=== PATIENT | female | born 1940 | race Caucasian/White ===

== ENCOUNTER 2019-11-15 09:33 | Inpatient (IN) | payer MEDICARE, BC ==
[~2019-11-15] VITALS: Ht 152.4 cm; Wt 72.3 kg
[2019-11-15] MEDS ORDERED: nitroGLYCERIN 0.4mg SUBLingual tab SL PRN ×2 (09:40→12:15)
[2019-11-15] MEDS ORDERED: aspirin 81mg tab.chew PO ONE (09:40)
[2019-11-15 10:10] LABS: BASOPHILS % (AUTO) 0.7 % (0-1); EOSINOPHILS % (AUTO) 0.7 % (0-6); HEMATOCRIT 46.4 % (35.0-45.0); HEMOGLOBIN 15.8 g/dl (12.0-16.0); LYMPHOCYTES # (AUTO) 1.8 X10'3 (1.1-4.8); LYMPHOCYTES % (AUTO) 27.2 % (21-51); MEAN CORPUSCULAR HEMOGLOBIN 31.5 PG (27.0-31.0); MEAN CORPUSCULAR VOLUME 92.7 FL (78-98); MEAN PLATELET VOLUME 9.3 FL (7.4-10.4); MONOCYTES # (AUTO) 0.5 X10'3 (0-0.9); MONOCYTES % (AUTO) 7.8 % (2-12); NEUTROPHILS # (AUTO) 4.3 X10'3 (1.8-7.7); NEUTROPHILS % (AUTO) 63.6 % (42-75); PLATELET COUNT 206 X10'3 (140-440); RED BLOOD COUNT 5.01 X10'6 (4.20-5.60); RED CELL DISTRIBUTION WIDTH 13.4 % (11.5-14.5); WHITE BLOOD COUNT 6.7 X10'3 (4.5-11.0)
[2019-11-15 10:22] LABS: ALANINE AMINOTRANSFERASE 36 U/L (12-78); ALBUMIN 3.7 G/DL (3.4-5.0); ALBUMIN/GLOBULIN RATIO 0.9 (1.1-1.5); ALKALINE PHOSPHATASE 100 IU/L (46-116); ANION GAP 7 (8-16); ASPARTATE AMINO TRANSFERASE 51 U/L (10-37); BILIRUBIN,TOTAL 0.4 MG/DL (0.1-1.0); BLOOD UREA NITROGEN 17 MG/DL (7-18); BUN/CREATININE RATIO 21.3 (6.6-38.0); CHLORIDE 103 MMOL/L (99-107); GLUCOSE 69 MG/DL (70-104); SODIUM 137 MMOL/L (135-145); TOTAL CARBON DIOXIDE 26.9 MMOL/L (24-32); TOTAL PROTEIN 7.6 G/DL (6.4-8.2); eGFR 69 ML/MIN
[2019-11-15] MEDS ORDERED: acetaminophen 325mg tablet PO PRN ×2 (11:15→20:30)
[2019-11-15] MEDS ORDERED: mag hydrox/Alum hydrox/simeth 30ml oral suspension PO PRN (11:15)
[2019-11-15] MEDS ORDERED: ondansetron/PF 4mg/2ml inj IV PRN (11:15)
[2019-11-15] MEDS ORDERED: magnesium hydroxide 30ml (MOM) UD suspension PO PRN (11:15)
[2019-11-15] MEDS ORDERED: morphine 2 MG/ML inj. syringe IV PRN ×2 (11:15)
[2019-11-15] MEDS ORDERED: regadenoson 0.4mg/5ml syringe IV PRN (12:15)
[2019-11-15] MEDS ORDERED: metoprolol tartrate 1mg/ml inj IV PRN (12:15)
[2019-11-15] MEDS ORDERED: aminophylline 250mg/10ml inj. IV PRN (12:15)
[2019-11-15] MEDS: normal saline 1000ml 1,000 ML IV SCH ×2 (12:18→21:05)
--- NOTE | 2019-11-15 15:05 | NUR ---
Patient in room ED 15. I have received report from Geo and had the opportunity to ask questions and assume patient care.
[2019-11-15 15:47] VITALS: BP 166/80
[2019-11-15] MEDS ORDERED: ASPI-611 PO (16:32)
[2019-11-15 18:00] VITALS: BP 160/77
--- NOTE | 2019-11-15 18:23 | NUR ---
Problems reprioritized. Patient report given, questions answered & plan of care reviewed with Ev.
--- NOTE | 2019-11-15 18:24 | NUR ---
Patient in room PCU 3015. I have received report from Donato HUNTER and had the opportunity to ask questions and assume patient care.
[2019-11-15] MEDS: carVEDilol 3.125mg tablet PO SCH (19:02)
[2019-11-15] MEDS: heparin, porcine 5000 units/ml vial SQ SCH (19:03)
--- NOTE | 2019-11-15 19:53 | NUR ---
PAGER ID: [phone] MESSAGE: Sherlyn ext [phone]. Pt April Live is requesting Tylenol for her headache. Thank you
[2019-11-15 21:48] VITALS: BP 122/63
[2019-11-16] VITALS (9 sets, daily range): BP systolic 145–190; BP diastolic 71–86
--- NOTE | 2019-11-16 06:00 | NUR ---
Patient in room PCU 3015. I have received report from Neida HUNTER and had the opportunity to ask questions and assume patient care.
--- NOTE | 2019-11-16 06:25 | NUR ---
Problems reprioritized. Patient report given, questions answered & plan of care reviewed with Donna HUNTER.
[2019-11-16 06:34] LABS: EOSINOPHILS # (AUTO) 0.1 X10'3 (0-0.9); HEMATOCRIT 41.8 % (35.0-45.0); HEMOGLOBIN 13.8 g/dl (12.0-16.0); LYMPHOCYTES # (AUTO) 1.8 X10'3 (1.1-4.8); MEAN CORPUSCULAR HEMOGLOBIN 30.8 PG (27.0-31.0); MEAN CORPUSCULAR HGB CONC 33.1 g/dL (33.0-36.5); MEAN CORPUSCULAR VOLUME 93.3 FL (78-98); MEAN PLATELET VOLUME 9.9 FL (7.4-10.4); MONOCYTES # (AUTO) 0.4 X10'3 (0-0.9); MONOCYTES % (AUTO) 9.1 % (2-12); NEUTROPHILS % (AUTO) 45.9 % (42-75); PLATELET COUNT 158 X10'3 (140-440); RED BLOOD COUNT 4.48 X10'6 (4.20-5.60); RED CELL DISTRIBUTION WIDTH 13.4 % (11.5-14.5); WHITE BLOOD COUNT 4.3 X10'3 (4.5-11.0)
[2019-11-16 06:40] LABS: ALBUMIN 2.8 G/DL (3.4-5.0); ANION GAP 9 (8-16); BLOOD UREA NITROGEN 12 MG/DL (7-18); BUN/CREATININE RATIO 16.9 (6.6-38.0); CALCIUM 8.2 MG/DL (8.5-10.1); CHLORIDE 109 MMOL/L (99-107); CREATININE 0.71 MG/DL (0.40-0.90); GLUCOSE 90 MG/DL (70-104); SODIUM 141 MMOL/L (135-145); TOTAL CARBON DIOXIDE 23.2 MMOL/L (24-32); eGFR 79 ML/MIN
[2019-11-16] MEDS: normal saline 1000ml 1,000 ML IV SCH (07:29)
[2019-11-16] MEDS: carVEDilol 3.125mg tablet PO SCH (07:29)
[2019-11-16] MEDS: heparin, porcine 5000 units/ml vial SQ SCH (07:31)
[2019-11-16] MEDS ORDERED: aspirin 81mg tablet.DR PO SCH (08:00)
[2019-11-16] MEDS ORDERED: lisinopril 5mg tablet PO SCH (11:25)
[2019-11-16] MEDS ORDERED: LISI-604 PO (11:41)
[2019-11-16] MEDS ORDERED: CARV3.12 PO (11:41)
--- NOTE | 2019-11-16 14:07 | NUR ---
Patient was discharged to home. RX were e scripted to [facility] in [place]. PIV was removed with cannula intact. Patient was picked up by a friend. Discharge instructions were reviewed and patient verbalized understanding. Patient was alert, oriented , and appropriate at time of discharge
== END 2019-11-16 13:57 | disposition home or self-care (01) | DRG 305 ==
LOC: ER 09:34 → ED HOLD 11:15 → PCU 3S 15:17
PROVIDERS: ADMIT Family Medicine; ATTEND Family Medicine
PROC: 4A02XM4 Measurement of Cardiac Total Activity, External Approach (ICD-10-PCS; principal; 2019-11-16)
PROC: 3E073KZ Introduction of Other Diagnostic Substance into Coronary Artery, Percutaneous Approach (ICD-10-PCS; 2019-11-16)
DX: I16.0 Hypertensive urgency (principal); I20.0 Unstable angina; F41.9 Anxiety disorder, unspecified; I10 Essential (primary) hypertension; Z86.73 Personal history of transient ischemic attack (TIA), and cerebral infarction without residual deficits; Z79.82 Long term (current) use of aspirin; Z88.8 Allergy status to other drugs, medicaments and biological substances
CPT/HCPCS: 36415; 71045; 78452; 80048; 80053; 83880; 84484; 85025; 87081; 93005; 93017; 93306; 99285; A9500; G0378; J1644; J2785; J7030

== ENCOUNTER 2020-02-25 06:24 | Inpatient (IN) | payer MEDICARE, BC ==
[~2020-02-25] VITALS: Ht 149.9 cm; Wt 70.5 kg
[2020-02-25] VITALS (7 sets, daily range): BP systolic 90–125; BP diastolic 47–67
[~2020-02-25 06:24] MED LIST: CARV3.12 PO; LISI-604 PO
[2020-02-25] MEDS ORDERED: normal saline 1000ML IV soln IV ONE (06:40)
[2020-02-25 07:50] LABS: BASOPHILS % (AUTO) 0.3 % (0-1); EOSINOPHILS # (AUTO) 0.1 X10'3 (0-0.9); EOSINOPHILS % (AUTO) 0.7 % (0-6); HEMATOCRIT 32.3 % (35.0-45.0); HEMOGLOBIN 10.8 g/dl (12.0-16.0); LYMPHOCYTES % (AUTO) 13.4 % (21-51); MEAN CORPUSCULAR HEMOGLOBIN 31.1 PG (27.0-31.0); MEAN CORPUSCULAR HGB CONC 33.3 g/dL (33.0-36.5); MEAN CORPUSCULAR VOLUME 93.2 FL (78-98); MEAN PLATELET VOLUME 9.7 FL (7.4-10.4); MONOCYTES # (AUTO) 0.2 X10'3 (0-0.9); MONOCYTES % (AUTO) 2.7 % (2-12); NEUTROPHILS # (AUTO) 6.3 X10'3 (1.8-7.7); NEUTROPHILS % (AUTO) 82.9 % (42-75); PLATELET COUNT 169 X10'3 (140-440); RED BLOOD COUNT 3.46 X10'6 (4.20-5.60); RED CELL DISTRIBUTION WIDTH 13.8 % (11.5-14.5); WHITE BLOOD COUNT 7.6 X10'3 (4.5-11.0)
[2020-02-25 08:01] LABS: PARTIAL THROMBOPLASTIN TIME 31 SECONDS (22-32)
[2020-02-25 08:03] LABS: ALANINE AMINOTRANSFERASE 13 U/L (12-78); ALBUMIN 2.4 G/DL (3.4-5.0); ALBUMIN/GLOBULIN RATIO 0.9 (1.1-1.5); ALKALINE PHOSPHATASE 60 IU/L (46-116); ANION GAP 7 (8-16); ASPARTATE AMINO TRANSFERASE 15 U/L (10-37); BILIRUBIN,TOTAL 0.4 MG/DL (0.1-1.0); BLOOD UREA NITROGEN 19 MG/DL (7-18); BUN/CREATININE RATIO 27.1 (6.6-38.0); CALCIUM 7.7 MG/DL (8.5-10.1); CHLORIDE 112 MMOL/L (99-107); GLUCOSE 138 MG/DL (70-104); SODIUM 142 MMOL/L (135-145); TOTAL CARBON DIOXIDE 23.4 MMOL/L (24-32); eGFR 81 ML/MIN
[2020-02-25] MEDS ORDERED: mag hydrox/Alum hydrox/simeth 30ml oral suspension PO PRN (08:30)
[2020-02-25] MEDS ORDERED: HYDROcodone/acetaminophen 10/325mg tab PO PRN (08:30)
[2020-02-25] MEDS ORDERED: magnesium 4gm in 100ml NS 100 ML IV PRN (08:30)
[2020-02-25] MEDS ORDERED: magnesium Cl slow-release 64mg tablet PO PRN (08:30)
[2020-02-25] MEDS ORDERED: potassium CL 10mEq/100ml bag 100 ML IV PRN ×2 (08:30)
[2020-02-25] MEDS ORDERED: ondansetron/PF 4mg/2ml inj IV PRN (08:30)
[2020-02-25] MEDS ORDERED: potassium Cl 20mEq in NS 1,000 ML IV SCH (08:30)
[2020-02-25] MEDS ORDERED: acetaminophen 325mg tablet PO PRN (08:30)
[2020-02-25] MEDS ORDERED: magnesium 2GM in 50ml NS 50 ML IV PRN (08:30)
[2020-02-25] MEDS ORDERED: potassium Cl 20 mEq SR tablet PO PRN (08:30)
[2020-02-25] MEDS ORDERED: HYDROcodone/acetaminophen 5mg/325mg tablet PO PRN (08:30)
[2020-02-25] MEDS ORDERED: magnesium hydroxide 30ml (MOM) UD suspension PO PRN (08:30)
[2020-02-25] MEDS ORDERED: metoclopramide 5 mg/ml inj IV PRN (08:30)
[2020-02-25 08:47] LABS: CLARITY,URINE CLOUDY (Clear); COLOR,URINE YELLOW (Yellow); GLUCOSE, URINE NEGATIVE (Neg); KETONES,URINE TRACE mg/dl (Neg); LEUKOCYTE ESTERASE ,URINE SMALL (Neg); NITRITES, URINE NEGATIVE (Neg); OCCULT BLOOD,URINE LARGE (Neg); PROTEIN,URINE NEGATIVE (Neg); UROBILINOGEN,URINE 0.2 E.U/dL (0.2-1.0)
[2020-02-25] MEDS ORDERED: iohexol 350MG/ML 100ml bottle IV ONE (08:54)
[2020-02-25 08:56] LABS: UA COLLECTION TYPE CLN CATCH MIDSTREAM
[2020-02-25 08:58] LABS: HYALINE CASTS 0-3 /LPF (NEGATIVE); MUCUS STRANDS MANY /LPF (Neg); SQUAMOUS EPITHELIAL CELL,UR MODERATE /LPF (FEW)
[2020-02-25 08:59] LABS: BACTERIA,URINE 1+ /HPF (Neg)
[2020-02-25 09:00] LABS: WBC,URINE 0-4 /HPF (0-4)
[2020-02-25] MEDS: pantoprazole 40 MG vial IV SCH (09:33)
[2020-02-25] MEDS: normal saline 1000ml 1,000 ML IV SCH ×3 (09:33→22:23)
[2020-02-25 11:38] LABS: OCCULT BLOOD STOOL POSITIVE (Neg)
--- NOTE | 2020-02-25 11:50 | NUR ---
PT EXPERIENCED INCREASED DIZZINESS THEN BECAME UNRESPONSIZE ON THE BEDSIDE COMMODE DUE TO LARGE AMOUNTS OF DARK RED BLOODY STOOL. DR. BRIGGS WAS MADE AWARE. BLOOD WAS ORDERED IMMEDIATLY AND PT WAS ASSISTED BACK INTO BED BY HAIDER CHAPPELL.
[2020-02-25] MEDS ORDERED: CARV3.122 PO (12:28)
[2020-02-25] MEDS ORDERED: LISI10TA4 PO (12:28)
[2020-02-25] MEDS ORDERED: ASPI-611 PO (12:40)
[2020-02-25] MEDS ORDERED: normal saline 1000ML IV soln IVB ONE (16:35)
[2020-02-25 17:24] LABS: HEMATOCRIT 27.7 % (35.0-45.0); HEMOGLOBIN 9.1 g/dl (12.0-16.0); MEAN CORPUSCULAR HEMOGLOBIN 31.2 PG (27.0-31.0); MEAN CORPUSCULAR VOLUME 94.6 FL (78-98); MEAN PLATELET VOLUME 10.9 FL (7.4-10.4); PLATELET COUNT 128 X10'3 (140-440); RED BLOOD COUNT 2.93 X10'6 (4.20-5.60); RED CELL DISTRIBUTION WIDTH 13.6 % (11.5-14.5); WHITE BLOOD COUNT 8.8 X10'3 (4.5-11.0)
--- NOTE | 2020-02-25 17:30 | NUR ---
Patient in room PCU 3015. I have received report from ELSA Pfeiffer and had the opportunity to ask questions and assume patient care.
[2020-02-25] MEDS ORDERED: PEG 3350/Na sulf,bicarb,Cl/KCl oral sol 4 liter bottle PO ONE (18:00)
--- NOTE | 2020-02-25 18:12 | NUR ---
PAGER ID: [phone] MESSAGE: RE: April Live [id number]. Rapid response called. Patient hypotensive sbp 75. Bolusing NS at this time. Stat hemogram. Any new orders. Kayla [phone]
--- NOTE | 2020-02-25 19:05 | NUR ---
While setting pt up in the room after ED transferred. Pt stated had a large red bloody BM. Pt states feeling dizzy and lightheaded. Notified charge nurse. BP 73/33. NS bolus started and Rapid was called. Pt more stable at this time. Patient report given, questions answered & plan of care reviewed with ELSA Sherman.
[2020-02-25 19:59] LABS: HEMATOCRIT 23.4 % (35.0-45.0); HEMOGLOBIN 7.8 g/dl (12.0-16.0); MEAN CORPUSCULAR HEMOGLOBIN 31.8 PG (27.0-31.0); MEAN CORPUSCULAR HGB CONC 33.5 g/dL (33.0-36.5); PLATELET COUNT 126 X10'3 (140-440); RED BLOOD COUNT 2.46 X10'6 (4.20-5.60); RED CELL DISTRIBUTION WIDTH 13.7 % (11.5-14.5); WHITE BLOOD COUNT 8.7 X10'3 (4.5-11.0)
[2020-02-25] MEDS: K and/or MAG REPLACEMENT MC SCH (20:00)
[2020-02-25 20:12] LABS: PARTIAL THROMBOPLASTIN TIME 36 SECONDS (22-32)
[2020-02-25] MEDS ORDERED: temazepam 15mg capsule PO PRN (21:00)
--- NOTE | 2020-02-25 21:50 | NUR ---
Paged Dr. Chanel of pt's latest H & H. PAGER ID: [phone] MESSAGE: This is ELSA Sherman of PCU. Pt April Live, 79 F, DX : Blood in stool, who was Rapid Response a while ago before 1800 today has a latest H & H value of 7.8 / 23.4. Thanks!
[2020-02-25 23:40] LABS: HEMATOCRIT 25.4 % (35.0-45.0); HEMOGLOBIN 8.6 g/dl (12.0-16.0); MEAN CORPUSCULAR HEMOGLOBIN 31.5 PG (27.0-31.0); MEAN CORPUSCULAR HGB CONC 33.6 g/dL (33.0-36.5); MEAN CORPUSCULAR VOLUME 93.6 FL (78-98); MEAN PLATELET VOLUME 9.6 FL (7.4-10.4); PLATELET COUNT 151 X10'3 (140-440); RED BLOOD COUNT 2.72 X10'6 (4.20-5.60); RED CELL DISTRIBUTION WIDTH 13.7 % (11.5-14.5); WHITE BLOOD COUNT 10.6 X10'3 (4.5-11.0)
[2020-02-26] VITALS (16 sets, daily range): BP systolic 101–137; BP diastolic 48–68
[2020-02-26] MEDS: normal saline 1000ml 1,000 ML IV SCH (05:03)
[2020-02-26 06:00] LABS: HEMATOCRIT 22.3 % (35.0-45.0); HEMOGLOBIN 7.6 g/dl (12.0-16.0); MEAN CORPUSCULAR HEMOGLOBIN 32.2 PG (27.0-31.0); MEAN CORPUSCULAR HGB CONC 34.2 g/dL (33.0-36.5); MEAN CORPUSCULAR VOLUME 94.1 FL (78-98); PLATELET COUNT 141 X10'3 (140-440); RED BLOOD COUNT 2.37 X10'6 (4.20-5.60); RED CELL DISTRIBUTION WIDTH 13.8 % (11.5-14.5); WHITE BLOOD COUNT 10.4 X10'3 (4.5-11.0)
[2020-02-26 06:08] LABS: ALBUMIN 2.1 G/DL (3.4-5.0); ANION GAP 8 (8-16); BLOOD UREA NITROGEN 19 MG/DL (7-18); BUN/CREATININE RATIO 28.8 (6.6-38.0); CHLORIDE 116 MMOL/L (99-107); CREATININE 0.66 MG/DL (0.40-0.90); GLUCOSE 125 MG/DL (70-104); MAGNESIUM 1.7 MG/DL (1.5-2.4); PHOSPHORUS 2.9 MG/DL (2.3-4.5); POTASSIUM 3.9 MMOL/L (3.5-5.1); SODIUM 146 MMOL/L (135-145); TOTAL CARBON DIOXIDE 21.7 MMOL/L (24-32); eGFR 86 ML/MIN
--- NOTE | 2020-02-26 06:14 | NUR ---
Problems reprioritized. Patient report given, questions answered & plan of care reviewed with ELSA Porter.
--- NOTE | 2020-02-26 06:39 | NUR ---
Patient in room PCU 3015. I have received report from brian clarke and had the opportunity to ask questions and assume patient care.
[2020-02-26] MEDS: K and/or MAG REPLACEMENT MC SCH ×2 (08:00→19:19)
[2020-02-26] MEDS: pantoprazole 40 MG vial IV SCH (08:06)
[2020-02-26] MEDS ORDERED: MIDAZolam 5mg/5ml vial ONE (12:37)
[2020-02-26] MEDS ORDERED: LIDOcaine Viscous 15ml cup ONE (12:37)
[2020-02-26] MEDS ORDERED: fentaNYL/PF 50MCG/1 ML 2ML syringe ONE (12:37)
[2020-02-26] MEDS ORDERED: normal saline 1000ml 1,000 ML IV ONE (16:50)
--- NOTE | 2020-02-26 17:05 | NUR ---
PAGED DR FRAGA RE: PAGER ID: [phone] MESSAGE: ISHMAEL LAMAR. PTS FAMILY REQUESTS SHE BE TESTED FOR H. PYLORI. [facility] [id number]
[2020-02-26 17:40] LABS: HEMATOCRIT 22.9 % (35.0-45.0); HEMOGLOBIN 7.8 g/dl (12.0-16.0); MEAN CORPUSCULAR HEMOGLOBIN 31.9 PG (27.0-31.0); MEAN CORPUSCULAR HGB CONC 34.1 g/dL (33.0-36.5); MEAN CORPUSCULAR VOLUME 93.7 FL (78-98); MEAN PLATELET VOLUME 9.5 FL (7.4-10.4); PLATELET COUNT 128 X10'3 (140-440); RED BLOOD COUNT 2.44 X10'6 (4.20-5.60); RED CELL DISTRIBUTION WIDTH 13.5 % (11.5-14.5); WHITE BLOOD COUNT 9.9 X10'3 (4.5-11.0)
[2020-02-26 18:00] LABS: H PYLORI ANTIBODY NEGATIVE (Neg)
--- NOTE | 2020-02-26 18:26 | NUR ---
Problems reprioritized. Patient report given, questions answered & plan of care reviewed with ROSS HUNTER.
--- NOTE | 2020-02-26 18:28 | NUR ---
Patient in room PCU 3015. I have received report from ELSA Porter and had the opportunity to ask questions and assume patient care.
[2020-02-26] MEDS: pantoprazole 40mg Tablet.DR PO SCH (19:25)
[2020-02-26] MEDS: dextrose 5%-1/4 normal saline 1,000 ML IV SCH (21:41)
--- NOTE | 2020-02-26 23:00 | NUR ---
Patient in room PCU 3015. I have received report from Nely HUNTER and had the opportunity to ask questions and assume patient care.
--- NOTE | 2020-02-26 23:01 | NUR ---
Problems reprioritized. Patient report given, questions answered & plan of care reviewed with ELSA Gracia.
[2020-02-27] VITALS (10 sets, daily range): BP systolic 97–145; BP diastolic 44–75
[2020-02-27] MEDS: dextrose 5%-1/4 normal saline 1,000 ML IV SCH ×3 (03:10→22:36)
--- NOTE | 2020-02-27 06:00 | NUR ---
Patient in room PCU 3015. I have received report from Samia HUNTER and had the opportunity to ask questions and assume patient care.
--- NOTE | 2020-02-27 06:38 | NUR ---
Problems reprioritized. Patient report given, questions answered & plan of care reviewed with Emilie HUNTER.
[2020-02-27 07:09] LABS: HEMOGLOBIN 7.1 g/dl (12.0-16.0); MEAN CORPUSCULAR HEMOGLOBIN 32.7 PG (27.0-31.0); MEAN CORPUSCULAR HGB CONC 34.9 g/dL (33.0-36.5); MEAN CORPUSCULAR VOLUME 93.7 FL (78-98); MEAN PLATELET VOLUME 9.5 FL (7.4-10.4); PLATELET COUNT 120 X10'3 (140-440); RED BLOOD COUNT 2.15 X10'6 (4.20-5.60); RED CELL DISTRIBUTION WIDTH 13.8 % (11.5-14.5); WHITE BLOOD COUNT 9.5 X10'3 (4.5-11.0)
[2020-02-27 07:14] LABS: HEMATOCRIT 20.2 % (35.0-45.0)
--- NOTE | 2020-02-27 07:24 | NUR ---
PAGER ID: [phone] MESSAGE: [id number] Waqas Live H/H 7.05/12.2. Received PRBCx1 02/25. Emilie [phone]
--- NOTE | 2020-02-27 07:25 | NUR ---
Received orders to transfuse PRBC x1
[2020-02-27 07:29] LABS: ALBUMIN 2.2 G/DL (3.4-5.0); ANION GAP 5 (8-16); BLOOD UREA NITROGEN 12 MG/DL (7-18); BUN/CREATININE RATIO 17.9 (6.6-38.0); CALCIUM 7.3 MG/DL (8.5-10.1); CHLORIDE 110 MMOL/L (99-107); CREATININE 0.67 MG/DL (0.40-0.90); GLUCOSE 137 MG/DL (70-104); MAGNESIUM 1.6 MG/DL (1.5-2.4); PHOSPHORUS 1.5 MG/DL (2.3-4.5); POTASSIUM 3.3 MMOL/L (3.5-5.1); SODIUM 138 MMOL/L (135-145); TOTAL CARBON DIOXIDE 23.3 MMOL/L (24-32); eGFR 85 ML/MIN
[2020-02-27] MEDS: K and/or MAG REPLACEMENT MC SCH ×2 (08:00→20:00)
[2020-02-27] MEDS: pantoprazole 40mg Tablet.DR PO SCH ×2 (09:34→19:36)
[2020-02-27 13:13] LABS: HEMATOCRIT 26.3 % (35.0-45.0); HEMOGLOBIN 9.1 g/dl (12.0-16.0); MEAN CORPUSCULAR HEMOGLOBIN 31.6 PG (27.0-31.0); MEAN CORPUSCULAR HGB CONC 34.7 g/dL (33.0-36.5); MEAN CORPUSCULAR VOLUME 91.2 FL (78-98); MEAN PLATELET VOLUME 9.6 FL (7.4-10.4); PLATELET COUNT 129 X10'3 (140-440); RED BLOOD COUNT 2.88 X10'6 (4.20-5.60); RED CELL DISTRIBUTION WIDTH 14.5 % (11.5-14.5); WHITE BLOOD COUNT 10.9 X10'3 (4.5-11.0)
--- NOTE | 2020-02-27 18:30 | NUR ---
Problems reprioritized. Patient report given, questions answered & plan of care reviewed with Alexandra HUNTER.
--- NOTE | 2020-02-27 18:54 | NUR ---
Patient in room U 3015. I have received report from JENNIFER HUNTER and had the opportunity to ask questions and assume patient care. Addendum: 02/27/20 at 1855 by Alexandra Boo RN Amended: Links added.
[2020-02-27] MEDS: acetaminophen 325mg tablet PO PRN (19:34)
[2020-02-27 19:35] LABS: HEMATOCRIT 23.2 % (35.0-45.0); HEMOGLOBIN 8.2 g/dl (12.0-16.0); MEAN CORPUSCULAR HEMOGLOBIN 32.3 PG (27.0-31.0); MEAN CORPUSCULAR HGB CONC 35.5 g/dL (33.0-36.5); MEAN CORPUSCULAR VOLUME 90.9 FL (78-98); MEAN PLATELET VOLUME 9.7 FL (7.4-10.4); PLATELET COUNT 122 X10'3 (140-440); RED BLOOD COUNT 2.56 X10'6 (4.20-5.60); RED CELL DISTRIBUTION WIDTH 14.7 % (11.5-14.5); WHITE BLOOD COUNT 10.6 X10'3 (4.5-11.0)
--- NOTE | 2020-02-27 22:13 | NUR ---
Orientee documentation: I have reviewed and agree with all interventions, assessments performed and documented by ELSA Jackson.
[2020-02-28] VITALS (8 sets, daily range): BP systolic 117–153; BP diastolic 59–77
--- NOTE | 2020-02-28 01:05 | NUR ---
pt up with assistance to brp tolerated well.
[2020-02-28 01:57] LABS: HEMATOCRIT 23.6 % (35.0-45.0); HEMOGLOBIN 8.5 g/dl (12.0-16.0); MEAN CORPUSCULAR HEMOGLOBIN 32.7 PG (27.0-31.0); MEAN CORPUSCULAR HGB CONC 35.9 g/dL (33.0-36.5); MEAN CORPUSCULAR VOLUME 91.2 FL (78-98); MEAN PLATELET VOLUME 9.9 FL (7.4-10.4); PLATELET COUNT 132 X10'3 (140-440); RED BLOOD COUNT 2.59 X10'6 (4.20-5.60); RED CELL DISTRIBUTION WIDTH 14.3 % (11.5-14.5); WHITE BLOOD COUNT 9.9 X10'3 (4.5-11.0)
[2020-02-28 02:03] LABS: ALBUMIN 2.3 G/DL (3.4-5.0); ANION GAP 3 (8-16); BLOOD UREA NITROGEN 8 MG/DL (7-18); BUN/CREATININE RATIO 11.6 (6.6-38.0); CALCIUM 7.6 MG/DL (8.5-10.1); CHLORIDE 112 MMOL/L (99-107); CREATININE 0.69 MG/DL (0.40-0.90); GLUCOSE 121 MG/DL (70-104); MAGNESIUM 1.9 MG/DL (1.5-2.4); PHOSPHORUS 1.6 MG/DL (2.3-4.5); SODIUM 140 MMOL/L (135-145); TOTAL CARBON DIOXIDE 24.6 MMOL/L (24-32); eGFR 82 ML/MIN
[2020-02-28] MEDS: potassium Cl 20 mEq SR tablet PO PRN ×4 (02:22→22:53)
--- NOTE | 2020-02-28 03:30 | NUR ---
resting without s&s of distress.
--- NOTE | 2020-02-28 06:46 | NUR ---
Problems reprioritized. Patient report given, questions answered & plan of care reviewed with JENNIFER HUNTER. Addendum: 02/28/20 at 0648 by Alexandra Boo RN Amended: Links added.
--- NOTE | 2020-02-28 06:54 | NUR ---
Patient in room PCU 3015. I have received report from Alexandra HUNTER and had the opportunity to ask questions and assume patient care.
[2020-02-28 07:07] LABS: HEMATOCRIT 24.3 % (35.0-45.0); HEMOGLOBIN 8.6 g/dl (12.0-16.0); MEAN CORPUSCULAR HEMOGLOBIN 32.3 PG (27.0-31.0); MEAN CORPUSCULAR HGB CONC 35.1 g/dL (33.0-36.5); MEAN CORPUSCULAR VOLUME 91.8 FL (78-98); MEAN PLATELET VOLUME 9.2 FL (7.4-10.4); PLATELET COUNT 138 X10'3 (140-440); RED BLOOD COUNT 2.65 X10'6 (4.20-5.60); RED CELL DISTRIBUTION WIDTH 14.9 % (11.5-14.5); WHITE BLOOD COUNT 10.5 X10'3 (4.5-11.0)
[2020-02-28] MEDS: K and/or MAG REPLACEMENT MC SCH ×2 (08:00→20:00)
[2020-02-28] MEDS: dextrose 5%-1/4 normal saline 1,000 ML IV SCH ×2 (08:17→23:28)
[2020-02-28] MEDS: pantoprazole 40mg Tablet.DR PO SCH ×2 (08:17→20:34)
[2020-02-28] MEDS ORDERED: PANT40TA54 PO (09:15)
[2020-02-28] MEDS ORDERED: potassium Cl 20 mEq SR tablet PO PRN (10:35)
[2020-02-28] MEDS ORDERED: potassium CL 10mEq/100ml bag 100 ML IV PRN ×2 (10:35)
[2020-02-28] MEDS ORDERED: heparin sodium, porcine/PF 100unit/ml 5ML syringe ONE (11:14)
[2020-02-28 13:22] LABS: HEMATOCRIT 24.6 % (35.0-45.0); HEMOGLOBIN 8.5 g/dl (12.0-16.0); MEAN CORPUSCULAR HEMOGLOBIN 31.7 PG (27.0-31.0); MEAN CORPUSCULAR HGB CONC 34.8 g/dL (33.0-36.5); MEAN CORPUSCULAR VOLUME 91.2 FL (78-98); MEAN PLATELET VOLUME 9.5 FL (7.4-10.4); PLATELET COUNT 138 X10'3 (140-440); RED BLOOD COUNT 2.69 X10'6 (4.20-5.60); RED CELL DISTRIBUTION WIDTH 14.3 % (11.5-14.5); WHITE BLOOD COUNT 9.8 X10'3 (4.5-11.0)
--- NOTE | 2020-02-28 16:03 | NUR ---
PAGER ID: [phone] MESSAGE: [id number] Waqas Live bleeding scan negative for active bleed. However patient still passing small amount of blood rectally. Just an update. Emilie [phone]
--- NOTE | 2020-02-28 18:30 | NUR ---
Patient in room PCU 3015. I have received report from Emilie HUNTER and had the opportunity to ask questions and assume patient care.
--- NOTE | 2020-02-28 18:31 | NUR ---
Problems reprioritized. Patient report given, questions answered & plan of care reviewed with Brennan HUNTER.
[2020-02-28] MEDS ORDERED: tranexamic acid 100mg/ml inj. IV ONE (18:45)
[2020-02-28 19:21] LABS: HEMATOCRIT 24.5 % (35.0-45.0); HEMOGLOBIN 8.5 g/dl (12.0-16.0); MEAN CORPUSCULAR HEMOGLOBIN 32.4 PG (27.0-31.0); MEAN CORPUSCULAR HGB CONC 34.9 g/dL (33.0-36.5); MEAN CORPUSCULAR VOLUME 92.9 FL (78-98); MEAN PLATELET VOLUME 9.9 FL (7.4-10.4); PLATELET COUNT 140 X10'3 (140-440); RED BLOOD COUNT 2.64 X10'6 (4.20-5.60); RED CELL DISTRIBUTION WIDTH 14.6 % (11.5-14.5); WHITE BLOOD COUNT 10.2 X10'3 (4.5-11.0)
[2020-02-28] MEDS ORDERED: tranexamic acid inj. 700 MG in normal saline 100ml IV soln 100 ML IV ONE (19:30)
[2020-02-28] MEDS: acetaminophen 325mg tablet PO PRN (20:52)
[2020-02-29] VITALS (8 sets, daily range): BP systolic 131–152; BP diastolic 59–76
[2020-02-29 02:38] LABS: HEMATOCRIT 23.5 % (35.0-45.0); HEMOGLOBIN 8.2 g/dl (12.0-16.0); MEAN CORPUSCULAR HEMOGLOBIN 31.8 PG (27.0-31.0); MEAN CORPUSCULAR HGB CONC 34.8 g/dL (33.0-36.5); MEAN CORPUSCULAR VOLUME 91.5 FL (78-98); MEAN PLATELET VOLUME 9.7 FL (7.4-10.4); PLATELET COUNT 145 X10'3 (140-440); RED BLOOD COUNT 2.56 X10'6 (4.20-5.60); RED CELL DISTRIBUTION WIDTH 14.5 % (11.5-14.5); WHITE BLOOD COUNT 9.2 X10'3 (4.5-11.0)
[2020-02-29 02:53] LABS: ALBUMIN 2.5 G/DL (3.4-5.0); ANION GAP 4 (8-16); BLOOD UREA NITROGEN 7 MG/DL (7-18); BUN/CREATININE RATIO 11.7 (6.6-38.0); CALCIUM 7.9 MG/DL (8.5-10.1); CHLORIDE 110 MMOL/L (99-107); GLUCOSE 110 MG/DL (70-104); MAGNESIUM 1.8 MG/DL (1.5-2.4); PHOSPHORUS 1.9 MG/DL (2.3-4.5); POTASSIUM 4.2 MMOL/L (3.5-5.1); SODIUM 139 MMOL/L (135-145); TOTAL CARBON DIOXIDE 24.6 MMOL/L (24-32); eGFR > 90 ML/MIN
[2020-02-29 06:21] LABS: HEMOGLOBIN 8.1 g/dl (12.0-16.0); MEAN CORPUSCULAR HEMOGLOBIN 32.5 PG (27.0-31.0); MEAN CORPUSCULAR VOLUME 92.9 FL (78-98); PLATELET COUNT 142 X10'3 (140-440); RED BLOOD COUNT 2.48 X10'6 (4.20-5.60); RED CELL DISTRIBUTION WIDTH 14.4 % (11.5-14.5); WHITE BLOOD COUNT 7.8 X10'3 (4.5-11.0)
--- NOTE | 2020-02-29 06:26 | NUR ---
Student documentation: I have reviewed and agree with all interventions, medications, assessments performed and documented by Broderick Monroe RN.
--- NOTE | 2020-02-29 06:27 | NUR ---
Problems reprioritized. Patient report given, questions answered & plan of care reviewed with Deepa Ashford
--- NOTE | 2020-02-29 06:32 | NUR ---
Patient in room PCU 3015. I have received report from ELSA Amin and had the opportunity to ask questions and assume patient care.
[2020-02-29] MEDS: K and/or MAG REPLACEMENT MC SCH ×2 (08:00→20:00)
[2020-02-29] MEDS: pantoprazole 40mg Tablet.DR PO SCH ×2 (09:03→20:24)
--- NOTE | 2020-02-29 10:53 | NUR ---
Per Dr Ca, put pt on a clear liquid diet/no reds. Start on Golytely after dinner. NPO after midnight, discontinue dextrose, start on NS at 70ml/hr. Dr Alicea will possibly perform another colonoscopy on 03/01/20 in the evening with the proper preparation.
[2020-02-29] MEDS ORDERED: iohexol 350MG/ML 100ml bottle IV ONE (11:37)
[2020-02-29] MEDS: normal saline 1000ml 1,000 ML IV SCH ×2 (12:16→23:57)
--- NOTE | 2020-02-29 18:30 | NUR ---
Problems reprioritized. Patient report given, questions answered & plan of care reviewed with ELSA Carter. Pt sitting up in bed eating at change of shift, all pt needs met at this time.
[2020-02-29] MEDS ORDERED: PEG 3350/Na sulf,bicarb,Cl/KCl oral sol 4 liter bottle PO ONE (19:00)
[2020-03-01] VITALS (9 sets, daily range): BP systolic 116–154; BP diastolic 51–82
[2020-03-01 06:06] LABS: HEMATOCRIT 24.3 % (35.0-45.0); HEMOGLOBIN 8.4 g/dl (12.0-16.0); MEAN CORPUSCULAR HEMOGLOBIN 32.4 PG (27.0-31.0); MEAN CORPUSCULAR HGB CONC 34.5 g/dL (33.0-36.5); MEAN CORPUSCULAR VOLUME 93.8 FL (78-98); MEAN PLATELET VOLUME 9.8 FL (7.4-10.4); PLATELET COUNT 158 X10'3 (140-440); RED BLOOD COUNT 2.59 X10'6 (4.20-5.60); RED CELL DISTRIBUTION WIDTH 14.6 % (11.5-14.5); WHITE BLOOD COUNT 6.9 X10'3 (4.5-11.0)
[2020-03-01 06:35] LABS: ALBUMIN 2.6 G/DL (3.4-5.0); ANION GAP 6 (8-16); BLOOD UREA NITROGEN 5 MG/DL (7-18); BUN/CREATININE RATIO 9.1 (6.6-38.0); CHLORIDE 108 MMOL/L (99-107); CREATININE 0.55 MG/DL (0.40-0.90); GLUCOSE 104 MG/DL (70-104); MAGNESIUM 1.8 MG/DL (1.5-2.4); POTASSIUM 3.8 MMOL/L (3.5-5.1); SODIUM 139 MMOL/L (135-145); TOTAL CARBON DIOXIDE 24.7 MMOL/L (24-32); eGFR > 90 ML/MIN
--- NOTE | 2020-03-01 06:41 | NUR ---
Problems reprioritized. Patient report given, questions answered & plan of care reviewed with LORI. Addendum: 03/01/20 at 0641 by Bogdan Stinson RN Amended: Links added.
--- NOTE | 2020-03-01 06:43 | NUR ---
Patient in room PCU 3015. I have received report from Raul HUNTER and had the opportunity to ask questions and assume patient care.
--- NOTE | 2020-03-01 07:27 | NUR ---
PAGER ID: [phone] MESSAGE: Neftali Renee#[phone]- Pt pulled his PIV on his hand. Pt has Protonix, sandistatin, other antibiotics that need to be given. Can we please get pic put in a central line so we can draw? Thank you. Carlie Addendum: 03/01/20 at 1458 by Carlie Dubon RN wrong pt
[2020-03-01] MEDS: K and/or MAG REPLACEMENT MC SCH ×2 (08:00→20:00)
[2020-03-01] MEDS: pantoprazole 40mg Tablet.DR PO SCH ×2 (08:07→20:33)
--- NOTE | 2020-03-01 14:57 | NUR ---
Pt taken to GI lab for colonoscopy.
[2020-03-01] MEDS: normal saline 1000ml 1,000 ML IV SCH ×2 (15:01→20:34)
[2020-03-01] MEDS ORDERED: fentaNYL/PF 50MCG/1 ML 2ML syringe ONE (15:02)
[2020-03-01] MEDS ORDERED: MIDAZolam 5mg/5ml vial ONE (15:02)
--- NOTE | 2020-03-01 17:40 | NUR ---
Pt had his bag of belongings brought up by [facility], which was preciously reviewed by security before hand. Pt received it, restrains were a bit loose because for the last 2 hrs pt has been good about not pulling PIV's or Ochoa. Pt looked thought the bag and got ahold of what appears to be heroin and a hypodermic used needle and shot up the substance up his hand IV. Sitter noticed him injecting something and took it away. Morgan charge nurse went into the room, assess the pt and proceeded on giving narcan 1mg/IV to pt. Dr Laird notified and restrains are back to short and tight at a comfortable level. Pt a & O and insisting on going AMA.
--- NOTE | 2020-03-01 18:25 | NUR ---
pt back from GI lab, regular diet ok.
--- NOTE | 2020-03-01 18:30 | NUR ---
Problems reprioritized. Patient report given, questions answered & plan of care reviewed with Gloria HUNTER.
[2020-03-02 02:00] VITALS: BP 107/59
[2020-03-02 07:23] VITALS: BP 121/51
[2020-03-02 07:24] VITALS: BP 121/51
[2020-03-02 07:25] VITALS: BP_SYST 147; BP_SYST 149; BP_DIAS 67; BP_DIAS 74
[2020-03-02] MEDS: K and/or MAG REPLACEMENT MC SCH (08:00)
[2020-03-02] MEDS: normal saline 1000ml 1,000 ML IV SCH (09:26)
[2020-03-02] MEDS: pantoprazole 40mg Tablet.DR PO SCH (09:26)
[2020-03-02] MEDS: acetaminophen 325mg tablet PO PRN (09:27)
[2020-03-02 11:00] VITALS: BP 100/41
--- NOTE | 2020-03-02 12:46 | NUR ---
Pt requesting to have a fiberglass insulation installer speak to her about appropriate diet with her new dx of diverticulosis. Diet consult ordered. Called kitchen. Unable to reach fiberglass insulation installer.
--- NOTE | 2020-03-02 14:12 | NUR ---
Whyte's esophagus information provided in discharge but colonoscopy report states only diverticulosis. Paged MD for clarification before discharge.
--- NOTE | 2020-03-02 15:30 | NUR ---
Reviewed discharge paperwork and medications with pt. She is aware that she has medications waiting for her at her preferred pharmacy in [place]. She is aware to stop taking NSAIDS and to temporarily stop taking ASA. She knows to f/u with her PCP within a week and discuss when or if to restart ASA and get a hemogram drawn. Written education given on diverticulosis, gastritis, and esophagitis. Diet consult completed on diverticulosis diet per pt. request. Pt. IV DC'd, pressure bandage applied, no s/sx bleeding noted. Tele DC'd cleaned and returned. Pt. got herself dressed and gather all of her belongings. She left, escorted with hospital staff, with her FWW to downstairs where her son picked her up in his vehicle to go home. Pt. had several opportunities to ask questions on discharge.
--- NOTE | 2020-03-02 16:25 | NUR ---
Nutrition consult: Pt seen at bedside for written and verbal diverticulosis and diverticulitis nutrition therapy education with a list of fiber content in food. All of patient's questions were answered at this time. RD contact information provided. Pt pending discharge at this time. Will remain available. Addendum: 03/02/20 at [address] Amended: Links added.
== END 2020-03-02 15:30 | disposition home or self-care (01) | DRG 369 ==
LOC: ER 06:25 → ED HOLD 08:29 → PCU 3S 17:25
PROVIDERS: ADMIT Family Medicine; ATTEND Family Medicine
PROC: 30233N1 Transfusion of Nonautologous Red Blood Cells into Peripheral Vein, Percutaneous Approach (ICD-10-PCS; 2020-02-25)
PROC: B4201ZZ Computerized Tomography (CT Scan) of Abdominal Aorta using Low Osmolar Contrast (ICD-10-PCS; 2020-02-25)
PROC: B4241ZZ Computerized Tomography (CT Scan) of Superior Mesenteric Artery using Low Osmolar Contrast (ICD-10-PCS; 2020-02-25)
PROC: B4281ZZ Computerized Tomography (CT Scan) of Bilateral Renal Arteries using Low Osmolar Contrast (ICD-10-PCS; 2020-02-25)
PROC: B42F1ZZ Computerized Tomography (CT Scan) of Right Lower Extremity Arteries using Low Osmolar Contrast (ICD-10-PCS; 2020-02-25)
PROC: B4211ZZ Computerized Tomography (CT Scan) of Celiac Artery using Low Osmolar Contrast (ICD-10-PCS; 2020-02-25)
PROC: 0DB48ZX Excision of Esophagogastric Junction, Via Natural or Artificial Opening Endoscopic, Diagnostic (ICD-10-PCS; principal; 2020-02-26)
PROC: 0DB68ZX Excision of Stomach, Via Natural or Artificial Opening Endoscopic, Diagnostic (ICD-10-PCS; 2020-02-26)
PROC: 0DJD8ZZ Inspection of Lower Intestinal Tract, Via Natural or Artificial Opening Endoscopic (ICD-10-PCS; 2020-02-26)
PROC: C713YZZ Planar Nuclear Medicine Imaging of Blood using Other Radionuclide (ICD-10-PCS; 2020-02-28)
PROC: BW211ZZ Computerized Tomography (CT Scan) of Abdomen and Pelvis using Low Osmolar Contrast (ICD-10-PCS; 2020-02-29)
PROC: 0DJD8ZZ Inspection of Lower Intestinal Tract, Via Natural or Artificial Opening Endoscopic (ICD-10-PCS; 2020-03-01)
DX: K21.01 Gastro-esophageal reflux disease with esophagitis, with bleeding (principal); E87.0 Hyperosmolality and hypernatremia; D62 Acute posthemorrhagic anemia; K57.90 Diverticulosis of intestine, part unspecified, without perforation or abscess without bleeding; K29.70 Gastritis, unspecified, without bleeding; E88.09 Other disorders of plasma-protein metabolism, not elsewhere classified; E87.6 Hypokalemia; E78.5 Hyperlipidemia, unspecified; I95.9 Hypotension, unspecified; R55 Syncope and collapse; I10 Essential (primary) hypertension; Z86.73 Personal history of transient ischemic attack (TIA), and cerebral infarction without residual deficits; Z88.8 Allergy status to other drugs, medicaments and biological substances; Z79.899 Other long term (current) drug therapy
CPT/HCPCS: 36415; 36430; 43239; 43244; 45378; 71045; 74174; 78278; 80048; 80053; 81001; 82272; 83735; 84100; 85025; 85027; 85610; 85730; 86677; 86885; 86900; 86901; 86920; 87081; 87088; 88305; 93005; 96374; 97110; 97116; 97162; 97530; 99152; 99153; 99285; A4620; A9560; C9113; G0378; J1642; J2250; J3010; J7030; J7040; P9016; Q9967

== ENCOUNTER 2020-06-28 10:02 | Emergency (ER) | payer MEDICARE, BC ==
[~2020-06-28] VITALS: Ht 149.9 cm; Wt 72.3 kg
[~2020-06-28 10:02] MED LIST changes: -CARV3.12 PO; +CARV3.122 PO; -LISI-604 PO; +LISI10TA27 PO; +PANT40TA54 PO
[2020-06-28] MEDS ORDERED: aspirin 81mg tab.chew PO ONE (10:10)
[2020-06-28 10:49] LABS: BASOPHILS # (AUTO) 0.1 X10'3 (0-0.2); BASOPHILS % (AUTO) 0.9 % (0-1); EOSINOPHILS # (AUTO) 0.1 X10'3 (0-0.9); EOSINOPHILS % (AUTO) 2.1 % (0-6); HEMATOCRIT 35.9 % (35.0-45.0); HEMOGLOBIN 11.2 g/dl (12.0-16.0); LYMPHOCYTES # (AUTO) 1.5 X10'3 (1.1-4.8); LYMPHOCYTES % (AUTO) 28.1 % (21-51); MEAN CORPUSCULAR HEMOGLOBIN 23.5 PG (27.0-31.0); MEAN CORPUSCULAR HGB CONC 31.2 g/dL (33.0-36.5); MEAN CORPUSCULAR VOLUME 75.4 FL (78-98); MEAN PLATELET VOLUME 8.9 FL (7.4-10.4); MONOCYTES # (AUTO) 0.5 X10'3 (0-0.9); MONOCYTES % (AUTO) 8.8 % (2-12); NEUTROPHILS # (AUTO) 3.3 X10'3 (1.8-7.7); NEUTROPHILS % (AUTO) 60.1 % (42-75); PLATELET COUNT 251 X10'3 (140-440); RED BLOOD COUNT 4.77 X10'6 (4.20-5.60); RED CELL DISTRIBUTION WIDTH 17.8 % (11.5-14.5); WHITE BLOOD COUNT 5.5 X10'3 (4.5-11.0)
[2020-06-28 11:19] LABS: ALANINE AMINOTRANSFERASE 18 U/L (12-78); ALBUMIN 3.4 G/DL (3.4-5.0); ALBUMIN/GLOBULIN RATIO 0.9 (1.1-1.5); ALKALINE PHOSPHATASE 82 IU/L (46-116); ANION GAP 9 (8-16); ASPARTATE AMINO TRANSFERASE 26 U/L (10-37); BILIRUBIN,TOTAL 0.3 MG/DL (0.1-1.0); BLOOD UREA NITROGEN 13 MG/DL (7-18); BUN/CREATININE RATIO 19.1 (6.6-38.0); CHLORIDE 105 MMOL/L (99-107); CREATININE 0.68 MG/DL (0.40-0.90); GLUCOSE 102 MG/DL (70-104); POTASSIUM 4.2 MMOL/L (3.5-5.1); SODIUM 138 MMOL/L (135-145); TOTAL CARBON DIOXIDE 24.1 MMOL/L (24-32); TOTAL PROTEIN 7.3 G/DL (6.4-8.2); eGFR 83 ML/MIN
[2020-06-28] MEDS ORDERED: mag hydrox/Alum hydrox/simeth 30ml oral suspension PO ONE (11:55)
[2020-06-28] MEDS ORDERED: sucralfate 1 gm tablet PO ONE (11:55)
[2020-06-28] MEDS ORDERED: LIDOcaine Viscous 15ml cup MM ONE (11:55)
[2020-06-28 13:54] VITALS: BP 136/70
== END 2020-06-28 13:51 | disposition home or self-care (01) ==
LOC: ER 10:03
DX: R07.89 Other chest pain (principal); R11.0 Nausea; E78.00 Pure hypercholesterolemia, unspecified; I10 Essential (primary) hypertension; Z88.8 Allergy status to other drugs, medicaments and biological substances; Z79.899 Other long term (current) drug therapy
CPT/HCPCS: 36415; 71045; 80053; 83880; 84484; 85025; 93005; 99285

== ENCOUNTER 2020-11-06 13:55 | Inpatient (IN) | payer MEDICARE, BC ==
[~2020-11-06] VITALS: Ht 152.4 cm; Wt 71.8 kg
[2020-11-06] MEDS ORDERED: normal saline 1000ML IV soln IVB ONE (14:40)
[2020-11-06] MEDS ORDERED: pantoprazole 40 MG vial IV ONE (14:40)
[2020-11-06 15:19] LABS: BASOPHILS # (AUTO) 0.1 X10'3 (0-0.2); BASOPHILS % (AUTO) 1.1 % (0-1); EOSINOPHILS # (AUTO) 0.1 X10'3 (0-0.9); HEMATOCRIT 33.7 % (35.0-45.0); HEMOGLOBIN 10.9 g/dl (12.0-16.0); LYMPHOCYTES # (AUTO) 1.5 X10'3 (1.1-4.8); LYMPHOCYTES % (AUTO) 21.4 % (21-51); MEAN CORPUSCULAR HEMOGLOBIN 26.6 PG (27.0-31.0); MEAN CORPUSCULAR HGB CONC 32.4 g/dL (33.0-36.5); MEAN CORPUSCULAR VOLUME 82.2 FL (78-98); MONOCYTES # (AUTO) 0.4 X10'3 (0-0.9); MONOCYTES % (AUTO) 6.1 % (2-12); NEUTROPHILS # (AUTO) 4.8 X10'3 (1.8-7.7); NEUTROPHILS % (AUTO) 69.4 % (42-75); PLATELET COUNT 213 X10'3 (140-440); RED CELL DISTRIBUTION WIDTH 16.6 % (11.5-14.5)
[2020-11-06 15:28] LABS: PARTIAL THROMBOPLASTIN TIME 24 SECONDS (22-32)
[2020-11-06 15:30] LABS: ALANINE AMINOTRANSFERASE 21 U/L (12-78); ALBUMIN 3.1 G/DL (3.4-5.0); ALBUMIN/GLOBULIN RATIO 0.8 (1.1-1.5); ALKALINE PHOSPHATASE 61 IU/L (46-116); ANION GAP 5 (8-16); ASPARTATE AMINO TRANSFERASE 15 U/L (10-37); BILIRUBIN,TOTAL 0.2 MG/DL (0.1-1.0); BLOOD UREA NITROGEN 22 MG/DL (7-18); BUN/CREATININE RATIO 22.7 (6.6-38.0); CALCIUM 8.3 MG/DL (8.5-10.1); CHLORIDE 107 MMOL/L (99-107); CREATININE 0.97 MG/DL (0.40-0.90); GLUCOSE 123 MG/DL (70-104); LIPASE 98 U/L (73-393); POTASSIUM 4.6 MMOL/L (3.5-5.1); SODIUM 137 MMOL/L (135-145); TOTAL CARBON DIOXIDE 24.6 MMOL/L (24-32); TOTAL PROTEIN 6.8 G/DL (6.4-8.2); eGFR 55 ML/MIN
[2020-11-06] MEDS ORDERED: magnesium 4gm in 100ml NS 100 ML IV PRN (16:40)
[2020-11-06] MEDS ORDERED: HYDROcodone/acetaminophen 5mg/325mg tablet PO PRN (16:40)
[2020-11-06] MEDS ORDERED: magnesium 2GM in 50ml NS 50 ML IV PRN (16:40)
[2020-11-06] MEDS ORDERED: HYDROcodone/acetaminophen 10/325mg tab PO PRN (16:40)
[2020-11-06] MEDS ORDERED: potassium Cl 40MEQ/1/2NS 520ml 520 ML IV PRN ×2 (16:40)
[2020-11-06] MEDS ORDERED: ondansetron/PF 4mg/2ml inj IV PRN (16:40)
[2020-11-06] MEDS ORDERED: potassium Cl 20 mEq SR tablet PO PRN ×2 (16:40)
[2020-11-06] MEDS ORDERED: acetaminophen 325mg tablet PO PRN ×2 (16:40)
[2020-11-06] MEDS ORDERED: PANT-47 PO (16:58)
[2020-11-06] MEDS ORDERED: IRON150C8 PO (16:58)
--- NOTE | 2020-11-06 17:06 | NUR ---
Received pt via lele from ED. A&O x4. Bed low, call light in reach. Discussed POC, pt verbalizes understanding
[2020-11-06 18:00] VITALS: BP 117/91
--- NOTE | 2020-11-06 18:18 | NUR ---
Problems reprioritized. Patient report given, questions answered & plan of care reviewed with ELSA Apodaca.
--- NOTE | 2020-11-06 18:45 | NUR ---
Patient in room ORTHO 4010. I have received report from DANIEL HUNTER and had the opportunity to ask questions and assume patient care.
[2020-11-06] MEDS: K and/or MAG REPLACEMENT MC SCH (20:00)
[2020-11-06] MEDS: docusate sod 100mg capsule PO SCH (20:00)
[2020-11-06] MEDS: pantoprazole 40MG/NS 100ML BAG 100 ML IV SCH ×2 (20:12→22:20)
[2020-11-06] MEDS: carVEDilol 3.125mg tablet PO SCH (20:12)
[2020-11-06 22:00] VITALS: BP 129/62
[2020-11-06] MEDS: iron polysaccharide complex 150mg capsule PO SCH (22:19)
[2020-11-07] VITALS (11 sets, daily range): BP systolic 80–147; BP diastolic 39–77
[2020-11-07] MEDS: pantoprazole 40MG/NS 100ML BAG 100 ML IV SCH ×2 (02:10→06:00)
--- NOTE | 2020-11-07 06:39 | NUR ---
Patient in room ORTHO 4010. I have received report from tricia brantley and had the opportunity to ask questions and assume patient care.
--- NOTE | 2020-11-07 06:50 | NUR ---
Problems reprioritized. Patient report given, questions answered & plan of care reviewed with CORAZON HUNTER.
[2020-11-07 07:26] LABS: HEMATOCRIT 28.8 % (35.0-45.0); HEMOGLOBIN 9.3 g/dl (12.0-16.0); MEAN CORPUSCULAR HEMOGLOBIN 26.9 PG (27.0-31.0); MEAN CORPUSCULAR HGB CONC 32.3 g/dL (33.0-36.5); MEAN CORPUSCULAR VOLUME 83.2 FL (78-98); MEAN PLATELET VOLUME 9.1 FL (7.4-10.4); PLATELET COUNT 195 X10'3 (140-440); RED BLOOD COUNT 3.46 X10'6 (4.20-5.60); WHITE BLOOD COUNT 5.9 X10'3 (4.5-11.0)
[2020-11-07 07:54] LABS: ANION GAP 9 (8-16); BILIRUBIN,TOTAL 0.3 MG/DL (0.1-1.0); BLOOD UREA NITROGEN 19 MG/DL (7-18); BUN/CREATININE RATIO 27.1 (6.6-38.0); CALCIUM 7.8 MG/DL (8.5-10.1); CHLORIDE 110 MMOL/L (99-107); GLUCOSE 106 MG/DL (70-104); POTASSIUM 4.3 MMOL/L (3.5-5.1); SODIUM 140 MMOL/L (135-145); eGFR 81 ML/MIN
[2020-11-07 07:55] LABS: ALANINE AMINOTRANSFERASE 20 U/L (12-78); ALBUMIN 2.8 G/DL (3.4-5.0); ALBUMIN/GLOBULIN RATIO 0.9 (1.1-1.5); ALKALINE PHOSPHATASE 54 IU/L (46-116); ASPARTATE AMINO TRANSFERASE 17 U/L (10-37)
[2020-11-07] MEDS: docusate sod 100mg capsule PO SCH ×2 (08:00→20:00)
[2020-11-07] MEDS: K and/or MAG REPLACEMENT MC SCH ×2 (08:00→20:00)
[2020-11-07] MEDS ORDERED: fentaNYL/PF 50MCG/1 ML 2ML syringe ONE (09:50)
[2020-11-07] MEDS ORDERED: MIDAZolam 1 MG/ML 5ML VIAL ONE (09:50)
[2020-11-07] MEDS ORDERED: LIDOcaine Viscous 15ml cup ONE (09:50)
[2020-11-07 11:40] LABS: HEMATOCRIT 25.4 % (35.0-45.0); HEMOGLOBIN 8.1 g/dl (12.0-16.0); MEAN CORPUSCULAR HEMOGLOBIN 26.2 PG (27.0-31.0); PLATELET COUNT 168 X10'3 (140-440); RED CELL DISTRIBUTION WIDTH 16.2 % (11.5-14.5); WHITE BLOOD COUNT 5.2 X10'3 (4.5-11.0)
[2020-11-07] MEDS: carVEDilol 3.125mg tablet PO SCH ×2 (12:42→19:59)
[2020-11-07] MEDS: iron polysaccharide complex 150mg capsule PO SCH ×2 (12:44→19:59)
[2020-11-07] MEDS: lisinopril 10 MG tablet PO SCH (12:44)
[2020-11-07] MEDS ORDERED: iohexol 350MG/ML 100ml bottle IV ONE (14:56)
--- NOTE | 2020-11-07 18:21 | NUR ---
Problems reprioritized. Patient report given, questions answered & plan of care reviewed with tricia mckeon.
[2020-11-07 19:38] LABS: HEMOGLOBIN 8.2 g/dl (12.0-16.0); MEAN CORPUSCULAR HEMOGLOBIN 26.5 PG (27.0-31.0); MEAN CORPUSCULAR HGB CONC 32.7 g/dL (33.0-36.5); MEAN CORPUSCULAR VOLUME 81.2 FL (78-98); MEAN PLATELET VOLUME 8.8 FL (7.4-10.4); PLATELET COUNT 176 X10'3 (140-440); RED BLOOD COUNT 3.08 X10'6 (4.20-5.60); WHITE BLOOD COUNT 4.7 X10'3 (4.5-11.0)
[2020-11-08] VITALS (8 sets, daily range): BP systolic 117–132; BP diastolic 55–77
[2020-11-08 06:45] LABS: HEMATOCRIT 24.2 % (35.0-45.0); HEMOGLOBIN 7.8 g/dl (12.0-16.0); MEAN CORPUSCULAR HEMOGLOBIN 26.7 PG (27.0-31.0); MEAN CORPUSCULAR HGB CONC 32.4 g/dL (33.0-36.5); MEAN CORPUSCULAR VOLUME 82.5 FL (78-98); PLATELET COUNT 166 X10'3 (140-440); RED BLOOD COUNT 2.94 X10'6 (4.20-5.60); RED CELL DISTRIBUTION WIDTH 16.3 % (11.5-14.5); WHITE BLOOD COUNT 3.9 X10'3 (4.5-11.0)
--- NOTE | 2020-11-08 06:45 | NUR ---
Patient in room ORTHO 4010. I have received report from leana clarke and had the opportunity to ask questions and assume patient care.
[2020-11-08 07:19] LABS: ALANINE AMINOTRANSFERASE 17 U/L (12-78); ALBUMIN 2.4 G/DL (3.4-5.0); ALBUMIN/GLOBULIN RATIO 0.8 (1.1-1.5); ALKALINE PHOSPHATASE 44 IU/L (46-116); ANION GAP 6 (8-16); ASPARTATE AMINO TRANSFERASE 13 U/L (10-37); BILIRUBIN,TOTAL 0.3 MG/DL (0.1-1.0); BLOOD UREA NITROGEN 13 MG/DL (7-18); BUN/CREATININE RATIO 19.4 (6.6-38.0); CALCIUM 7.7 MG/DL (8.5-10.1); CHLORIDE 111 MMOL/L (99-107); CREATININE 0.67 MG/DL (0.40-0.90); GLUCOSE 93 MG/DL (70-104); MAGNESIUM 2.1 MG/DL (1.5-2.4); POTASSIUM 3.7 MMOL/L (3.5-5.1); SODIUM 140 MMOL/L (135-145); TOTAL CARBON DIOXIDE 22.7 MMOL/L (24-32); TOTAL PROTEIN 5.3 G/DL (6.4-8.2); eGFR 85 ML/MIN
[2020-11-08] MEDS ORDERED: pantoprazole 40mg Tablet.DR PO SCH (07:30)
[2020-11-08] MEDS: iron polysaccharide complex 150mg capsule PO SCH (07:32)
[2020-11-08] MEDS: docusate sod 100mg capsule PO SCH (08:00)
[2020-11-08] MEDS: K and/or MAG REPLACEMENT MC SCH (08:00)
[2020-11-08] MEDS: lisinopril 10 MG tablet PO SCH (10:13)
[2020-11-08] MEDS: carVEDilol 3.125mg tablet PO SCH (10:13)
--- NOTE | 2020-11-08 14:52 | NUR ---
ELSA TC: Pt recent DX pancolonic diverticulosis requesting nutrition ed handout at this time. Pt seen by DONNIE for written/verbal high fiber nutrition therapy ed w/ RD contact information provided. DONNIE encouraged pt to contact dietitian's office if further questions/concerns. Addendum: 11/08/20 at [address] Amended: Links added.
--- NOTE | 2020-11-08 15:30 | NUR ---
reviewed all discharge instructions, including f/u cbc with pmd within 1 week, no new prescriptions, sl dc'd from left wrist and left ac, both sites clear pt dc'd via w/c with all belongings
== END 2020-11-08 16:20 | disposition home or self-care (01) | DRG 377 ==
LOC: ER 13:55 → ED HOLD 16:36 → ORTHO 4S 17:08
PROVIDERS: ADMIT Family Medicine; ATTEND Family Medicine
PROC: 0DJ08ZZ Inspection of Upper Intestinal Tract, Via Natural or Artificial Opening Endoscopic (ICD-10-PCS; principal; 2020-11-07)
PROC: B4201ZZ Computerized Tomography (CT Scan) of Abdominal Aorta using Low Osmolar Contrast (ICD-10-PCS; 2020-11-07)
PROC: B4241ZZ Computerized Tomography (CT Scan) of Superior Mesenteric Artery using Low Osmolar Contrast (ICD-10-PCS; 2020-11-07)
PROC: B42C1ZZ Computerized Tomography (CT Scan) of Pelvic Arteries using Low Osmolar Contrast (ICD-10-PCS; 2020-11-07)
PROC: B42H1ZZ Computerized Tomography (CT Scan) of Bilateral Lower Extremity Arteries using Low Osmolar Contrast (ICD-10-PCS; 2020-11-07)
PROC: B4211ZZ Computerized Tomography (CT Scan) of Celiac Artery using Low Osmolar Contrast (ICD-10-PCS; 2020-11-07)
PROC: 30233N1 Transfusion of Nonautologous Red Blood Cells into Peripheral Vein, Percutaneous Approach (ICD-10-PCS; 2020-11-08)
DX: K57.31 Diverticulosis of large intestine without perforation or abscess with bleeding (principal); N17.0 Acute kidney failure with tubular necrosis; E78.00 Pure hypercholesterolemia, unspecified; E78.5 Hyperlipidemia, unspecified; I10 Essential (primary) hypertension; I72.8 Aneurysm of other specified arteries; E66.9 Obesity, unspecified; D64.9 Anemia, unspecified; E86.0 Dehydration; R55 Syncope and collapse; Z79.82 Long term (current) use of aspirin; Z80.3 Family history of malignant neoplasm of breast; Z82.49 Family history of ischemic heart disease and other diseases of the circulatory system; Z86.73 Personal history of transient ischemic attack (TIA), and cerebral infarction without residual deficits; Z88.8 Allergy status to other drugs, medicaments and biological substances; Z68.30 Body mass index [BMI] 30.0-30.9, adult; Z79.899 Other long term (current) drug therapy
CPT/HCPCS: 36415; 36430; 43235; 71045; 74174; 80053; 82948; 83690; 83735; 85025; 85027; 85610; 85730; 86885; 86900; 86901; 86920; 87081; 93005; 96361; 96375; 97110; 97116; 97163; 99152; 99285; A4620; C9113; G0378; J2250; J3010; J7030; J7040; P9016; Q9967

== ENCOUNTER 2024-12-02 08:45 | Outpatient (CLI) | payer MEDICARE, BC ==
[~2024-12-02 08:45] MED LIST changes: +IRON150C8 PO; +PANT-47 PO; -PANT40TA54 PO
--- NOTE | 2024-12-02 09:58 | RADIOLOGY REPORT ---
CLINICAL INDICATION: RIGHT KNEE PAIN TECHNIQUE: 2 radiographic views of the right knee were obtained. Comparison: None FINDINGS/IMPRESSION: There is no evidence of acute fracture or dislocation. The visualized joint space is well maintained. The alignment is anatomical. There is no radiopaque foreign body.
== END 2024-12-02 23:59 | disposition home or self-care (01) ==
LOC: RAD 08:45
PROVIDERS: ATTEND Nurse Practitioner Family
DX: M25.561 Pain in right knee (principal)
CPT/HCPCS: 73560

== ENCOUNTER 2025-01-13 12:53 | Outpatient (CLI) | payer MEDICARE, BC ==
[2025-01-13 13:31] LABS: MEAN PLATELET VOLUME 9.3 FL (7.4-10.4); RED CELL DISTRIBUTION WIDTH 14.3 % (11.5-14.5)
[2025-01-13 13:47] LABS: % IRON SATURATION 46.0 % (11-46)
== END 2025-01-13 23:59 | disposition home or self-care (01) ==
LOC: LAB 12:53
PROVIDERS: ATTEND Nurse Practitioner Family
DX: D75.1 Secondary polycythemia (principal); R55 Syncope and collapse; D69.9 Hemorrhagic condition, unspecified; R51.9 Headache, unspecified
CPT/HCPCS: 36415; 82728; 83540; 83550; 83735; 84466; 85025

== ENCOUNTER 2025-01-22 10:23 | Outpatient (CLI) | payer MEDICARE, BC ==
--- NOTE | 2025-01-22 13:18 | RADIOLOGY REPORT ---
CLINICAL INDICATION: OTH MENISCUS DERANGEMENTS, UNSP MEDIAL MENISCUS, RIGHT KNEE TECHNIQUE: Multiplanar, multisequence MRI of the right knee was performed without contrast. Contrast: None. COMPARISON: None FINDINGS: Joint space and synovium: There is no significant joint effusion. No synovitis. There is a popliteal fossa cyst measuring 5.1 cm. Bones and articular cartilage: There is no evidence of acute fracture or bone marrow edema. The alignment is normal. Multifocal high-grade articular cartilage loss noted in the patellar facets and patellar apex as well as the trochlear sulcus. There is no full-thickness articular cartilage loss in the medial or lateral meniscus. Menisci: The medial meniscus is intact. The lateral meniscus is intact. Tendons and ligaments: The tendons in the posterior knee are intact. The extensor mechanism is intact. The anterior cruciate ligament is intact. The posterior cruciate ligament is intact. The medial collateral ligament and the lateral collateral ligament stabilizing complex are intact. Muscles: Regional muscles are preserved in bulk and signal characteristics. Other: None. IMPRESSION: 1. Multifocal high-grade articular cartilage loss in the patellofemoral compartment in the right knee. 2. No evidence of meniscal tear or cruciate ligament injury. 3. Popliteal fossa cyst measuring 5.1 cm.
== END 2025-01-22 23:59 | disposition home or self-care (01) ==
LOC: MRI 10:23
PROVIDERS: ATTEND Nurse Practitioner Family
DX: M94.8X6 Other specified disorders of cartilage, lower leg (principal); M23.303 Other meniscus derangements, unspecified medial meniscus, right knee
CPT/HCPCS: 73721